=== PATIENT | male | born 2005 | race Hispanic/Latino ===

== ENCOUNTER 2025-01-16 18:17 | Emergency (ER) | payer SELFPAY ==
[2025-01-16] VITALS (25 sets, daily range): BP systolic 117–139; BP diastolic 59–98; PULSE 81–88; RESP 16–18; TEMP 36.8; O2SAT 94–100
--- NOTE | ~2025-01-16 | XR_ITS ---
Examination: XR wrist LT 2V Clinical History: fall Comparison: None Technique: 2 views left wrist Findings/impression: 1. Overlying splint material obscures fine bony detail. 2. No fracture or dislocation identified left wrist. 3. Mild negative ulnar variance secondary to oblique fracture ulnar midshaft. Reviewed, dictated and finalized at location R. RUCTIONAL CONSULTANT
--- NOTE | ~2025-01-16 | XR_ITS ---
EXAMINATION: XR forearm LT 2V, 01/16/2025 18:50 SPECIAL EVENTS FUNDRAISER HISTORY: pain and swelling COMPARISON: No comparisons available. Findings: There is a displaced comminuted fracture of the mid radius with a nondisplaced comminuted fracture of the mid to distal ulna. No significant degenerative changes. Soft tissues unremarkable. Impression: Fractures detailed above Reviewed, dictated and finalized at location P. IAL EVENTS FUNDRAISER Impression: Fractures detailed above
--- NOTE | ~2025-01-16 | XR_ITS ---
EXAMINATION: XR elbow LT 2V, 01/16/2025 18:50 SPORTS ANALYST HISTORY: pain swelling COMPARISON: No comparisons available. Findings: No acute fracture or malalignment. No significant degenerative changes. Soft tissues unremarkable. Impression: No acute fracture or malalignment. Reviewed, dictated and finalized at location P. TS ANALYST Impression: No acute fracture or malalignment.
[2025-01-16] MEDS: HYDROmorphone HCL INJ (*CRX) 1 MG/ML SYR 0.5 MG IV PUSH (19:43)
[2025-01-16] MEDS: ONDANSETRON INJ 4 MG/2 ML VIAL IV PUSH (19:43)
--- NOTE | 2025-01-16 21:54 | ED.GENADULT ---
HPI - General Adult General Chief complaint: Extremity Injury, Upper Stated complaint: L elbow pain playing football Time Seen by Provider: 01/16/25 20:27 History of Present Illness HPI narrative: 19-year-old [place] speaking male presenting after left forearm injury. Patient states he was playing soccer and he fell and landed on his arm. Mild nausea. Reports no other injuries. Neurovascular intact. Related Data Allergies Allergy/AdvReac Type Severity Reaction Status Date / Time No Known Allergies Allergy Verified 01/16/25 19:36 Review of Systems Review of Systems: All systems reviewed & are unremarkable except as noted in HPI and below Exam Narrative: GENERAL: Uncomfortable-appearing, well-nourished, and in no acute distress. HEAD: Normocephalic, atraumatic. EYES: PERRLA and EOMI. ENT: Nares clear, no rhinorrhea or epistaxis. Mucous membranes moist. Oropharynx without tonsillar hypertrophy exudate or other lesions. Bilateral TMs pearly stark non-bulging NECK: Supple. No adenopathy or masses. No carotid bruits or JVD CHEST: Clear to auscultation. No respiratory distress. No wheezes rales or rhonchi HEART: Regular rate and rhythm. No murmur heard. Normal peripheral pulses. ABDOMEN: Soft, nontender, nondistended, normal active bowel sounds. EXTREMITIES: Left mid forearm deformity. Neurovascular intact. Range of motion and strength limited by pain. SKIN: Warm, dry, no rash. NEURO: No focal deficits. Alert and oriented x3. PSYCH: Normal mood and affect Course Vital Signs Vital signs: Vital Signs Temperature 98.2 F 01/16/25 18:23 Pulse Rate 82 01/16/25 18:23 Respiratory Rate 18 01/16/25 18:23 Blood Pressure 139/98 H 01/16/25 18:23 Pulse Oximetry 99 01/16/25 18:23 Temperature 98.2 F 01/16/25 18:23 Pulse Rate 95 01/17/25 01:15 Respiratory Rate 18 01/17/25 01:15 Blood Pressure 130/79 01/17/25 01:15 Pulse Oximetry 98 01/17/25 01:15 Medical Decision Making [facility] Narrative Medical decision making narrative: 19-year-old [place] speaking male presenting after left forearm injury. Patient states he was playing soccer and he fell and landed on his arm. Mild nausea. Reports no other injuries. Neurovascular intact. Patient given Dilaudid and Zofran with improvement in his pain. Forearm x-ray demonstrated a displaced comminuted fracture of the mid radius with a nondisplaced comminuted fracture of the mid to distal ulna. X-ray elbow and wrist demonstrated no acute fracture or malalignment. Spoke with on-call ortho physician Dr. Walker who advised for the patient to be transferred for further trauma and orthopedic evaluation. Patient requested transfer to [facility]. Spoke with ER provider Dr. Benitez at [facility] who recommended speaking to their on-call ortho provider. Patient given Dilaudid, Zofran, and Tylenol prior to splint placement. Sugar-tong splint placed for patient comfort. Splint was placed by the emergency department heating technician under my supervision. The patient was neurovascularly intact both pre-and post-procedure. Discussed with Dr. Butt with orthopedic trauma surgery at [facility] about patient presentation and workup. He endorses that as long as there are no concerns for compartment syndrome and the patient is neurovascularly intact he can follow up outpatient to be scheduled for surgery. Patient maintains this status and verbalizes understranding of the plan. Given reasons to return. Medical Records Medical records reviewed: Yes I reviewed the external patient's medical records. Vital Signs Vital Signs: Vital Signs Temperature 98.2 F 01/16/25 18:23 Pulse Rate 82 01/16/25 18:23 Respiratory Rate 18 01/16/25 18:23 Blood Pressure 139/98 H 01/16/25 18:23 Pulse Oximetry 99 01/16/25 18:23 Temperature 98.2 F 01/16/25 18:23 Pulse Rate 95 01/17/25 01:15 Respiratory Rate 18 01/17/25 01:15 Blood Pressure 130/79 01/17/25 01:15 Pulse Oximetry 98 01/17/25 01:15 Imaging Data Attestation: I personally reviewed and interpreted this imaging study as follows: Radiologist's impression: ITS Impressions Elbow X-Ray 01/16/25 19:12 Impression: No acute fracture or malalignment. Forearm X-Ray 01/16/25 19:12 Impression: Fractures detailed above Wrist XR Impression: 1. Overlying splint material obscures fine bony detail. 2. No fracture or dislocation identified left wrist. 3. Mild negative ulnar variance secondary to oblique fracture ulnar midshaft. Critical Care Time Critical Care Time Critical Care Time: No Discharge Plan Discharge Clinical Impression: Fracture, radius, Fracture, ulna Patient Disposition: Home Condition: Stable Additional Instructions: Return to the ER immediately if he notices any of the following is the injured arm: Severe pain that does not improve with pain medicine, pain with stretching the fingers, increasing tightness/swelling/hardness of the arm, numbness/tingling in the fingers, fingers becoming pale/cold/blue, or weak or absent ability to move the fingers. Other concerning symptoms you should seek care for including worsening swelling that makes the splint or cast feels too tight, new loss of sensation/weakness, fever feeling unwell, or if the splint becomes loose, damage or soaked. Follow-up as soon as possible with Dr. Butt with [facility] orthopedic surgery. Call [phone]. Take anti-inflammatories (Aleve, Ibuprofen, Naproxen, etc) and Tylenol as needed for pain and oxycodone as prescribed for break through pain. Regrese a urgencias inmediatamente si nota alguno de los siguientes s?ntomas en el brazo lesionado: dolor intenso que no mejora con analg?sicos, dolor al estirar los dedos, aumento de la rigidez, hinchaz?n o dureza en el brazo, entumecimiento u hormigueo en los dedos, dedos p?lidos, fr?os o azulados, o debilidad o p?rdida de la capacidad para draw string knotter los dedos. Otros s?ntomas preocupantes que requieren atenci?n m?dica incluyen un empeoramiento de la hinchaz?n que hace que la f?river o el yeso se sientan demasiado ajustados, p?rdida repentina de sensibilidad o debilidad, fiebre, malestar general o si la f?river se afloja, se da?a o se moja. Consulte lo antes posible con el Dr. Butt en el servicio de cirug?a ortop?dica de [facility]. Llame al [phone]. Cuero antiinflamatorios (Aleve, ibuprofeno, naproxeno, etc.) y paracetamol seg?n sea necesario para el dolor y oxicodona seg?n lo prescrito para el dolor irruptivo. Patient Language: Romanian Prescriptions: New oxycodone 5 mg tablet 5 mg PO Q4H PRN (Reason: pain) Qty: 14 0RF Follow-up/Referrals: Filomena,Dallin Pagan MD [Non-Staff, Unknown] PHYSICIAN,LIGHTNING ROD ERECTOR [Primary Care Provider, Internal Medicine]
[2025-01-16] MEDS: ONDANSETRON HCL ODT 4 MG TABLET PO (22:15)
[2025-01-16] MEDS: ACETAMINOPHEN 500 MG TABLET 1000 MG PO (22:15)
[2025-01-16] MEDS: HYDROmorphone HCL INJ (*CRX) 1 MG/ML SYR IM (22:15)
--- NOTE | 2025-01-16 23:22 | PC.NURSE ---
Assumed care of patient at this time.
[2025-01-17 01:15] VITALS: BP 130/79; PULSE 95; RESP 18; O2SAT 98
== END 2025-01-17 01:17 | disposition home or self-care (01) ==
DX: S52.352A Displaced comminuted fracture of shaft of radius, left arm, initial encounter for closed fracture (principal); S52.255A Nondisplaced comminuted fracture of shaft of ulna, left arm, initial encounter for closed fracture; W18.30XA Fall on same level, unspecified, initial encounter; Y93.66 Activity, soccer
CPT/HCPCS: 29125; 73070; 73090; 73100; 96372; 96374; 96375; 99284; A4565; A9270; J1171; J2405